=== PATIENT | male | born 1980 | race Caucasian/White ===

== ENCOUNTER 2017-02-19 16:06 | Emergency (ER) | payer SELFPAY ==
[~2017-02-19] VITALS: Ht 167.6 cm; Wt 62.0 kg
[~2017-02-19 16:06] MED LIST: ALBU6.7H INH; AMOX875 PO; BENZ100 PO; DICL75 PO; DICY1TAB26 PO; IBUP800T23 PO; MMW SWISH-SPIT; PENVK500 PO; ZOFR4TAB3 PO
[2017-02-19 16:09] VITALS: BP 115/62; PULSE 60; RESP 13; TEMP 98.5; O2SAT 99
--- NOTE | 2017-02-19 16:13 | PD ---
Physical Exam Date Seen by Provider: Feb 19, 2017 Time Seen by Provider: 16:12 Narrative 36-year-old male presents emergency Department with complaints of left ear pain. Symptoms are present now for the past 3 days. Pain is a 5/10 but getting worse. Patient is at some cold symptoms. Symptoms are moderate. No alleviating factors. Data Data Last Documented VS Vital Signs Date Time Temp Pulse Resp B/P (MAP) Pulse Ox O2 Delivery O2 Flow Rate FiO2 02/19/17 16:09 98.5 60 13 115/62 (79) 99 MDM Medical Record Reviewed: No Supervised Visit with KADY: Nguyễn Hammond Feb 19, 2017 16:13
[2017-02-19] MEDS ORDERED: AZIT500T2 PO (16:32)
--- NOTE | 2017-02-19 16:32 | PD ---
HPI Chief Complaint: Cold / Flu Symptoms Time Seen by Provider: 16:29 Travel History International Travel<30 days: No Contact w/Intl Traveler<30days: No Traveled to known affect area: No History of Present Illness HPI 36-year-old male presents to the emergency department requesting antibiotics for symptoms to include nasal congestion, sore throat, ear pressure, sinus pressure, cough 3 days. Denies fever, vomiting, abdominal pain. Chest pain, shortness of breath. Reports left ear pain is worse with blowing his nose and he hears it "pop." Denies lump in throat, difficulty swallowing, unusual drooling. Has been taking Tylenol for symptom management. No known relieving or aggravating factors. Symptoms are mild in severity. No one else with similar symptoms. Allergies to tramadol. Has no other medical complaints. No other modifying factors or associated signs and symptoms. PFSH Past Medical History Diminished Hearing: No Past Surgical History Abdominal Surgery: Yes (INGUINAL HERNIA SX) Social History Alcohol Use: No Tobacco Use: Yes Substance Use: No Allergies-Medications (Allergen,Severity, Reaction): Coded Allergies: tramadol (Unverified Allergy, Severe, Hives, 02/19/17) Reported Meds & Prescriptions Reported Meds & Active Scripts Active Azithromycin 500 Mg Tab 500 Mg PO DAILY Amoxicillin 875 Mg Tab 875 Mg PO BID 10 Days Bentyl (Dicyclomine HCl) 20 Mg Tab 20 Mg PO Q6HR PRN FOR CRAMPS Zofran ODT (Ondansetron HCl) 4 Mg Tab 4 Mg PO Q6HR PRN Diclofenac Sodium Dr (Diclofenac Sod) 75 Mg Tab 75 Mg PO BID PRN Proventil Hfa (Albuterol Sulfate) 6.7 Gm Aero 2 Puff INH Q4H PRN * SHAKE WELL BEFORE USE * Diclofenac Sodium Dr (Diclofenac Sod) 75 Mg Tab 75 Mg PO BID PRN 10 Days Penicillin V Potassium 500 Mg Tab 500 Mg PO BID 10 Days Magic Mouthwash-Diphenhy Formula (Lidocaine/Diphenhydr/Alum/Mg/Simeth) Ml 5 Ml SWISH-SPIT Q3H PRN MAGIC MOUTHWASH=MIX 1/3 VISCOUS LIDOCAINE(80 ML), 1/3 MAALOX(80 ML),AND 1/3 BENADRYL(80 ML) TO EQUAL 240 ML TOTAL VOLUME. Tessalon Perles (Benzonatate) 100 Mg Cap 100 Mg PO TID PRN Ibuprofen 800 Mg Tab 800 Mg PO Q6H PRN Review of Systems Except as stated in HPI: all other systems reviewed are Neg Physical Exam Narrative GENERAL: Well-nourished, well-developed male patient, in no acute distress; afebrile, nontoxic-appearing SKIN: Warm and dry. No rash. HEAD: Atraumatic. Normocephalic. EYES: Pupils equal and round. No scleral icterus. No injection or drainage. ENT: Mucosa pink and moist. No erythema or exudates. No uvular edema. No uvular , palatal, or tonsillar deviation. Airway patent. EARS: Bilateral pinnae and external canals appear within normal limits. Bilateral tympanic membranes without erythema, dullness or perforation. NECK: Trachea midline. No lymphadenopathy. CARDIOVASCULAR: Regular rate and rhythm. No murmur appreciated. RESPIRATORY: No accessory muscle use. Clear to auscultation. Breath sounds equal bilaterally. No retractions or tachypnea. GASTROINTESTINAL: Abdomen soft, non-tender, nondistended. Hepatic and splenic margins not palpable. Bowel sounds are active 4 quadrants. MUSCULOSKELETAL: No obvious deformities. No clubbing. No cyanosis. No edema. NEUROLOGICAL: Awake and alert. Oriented 3. No obvious cranial nerve deficits. Motor grossly within normal limits. Normal speech. Moves all extremities. 5/5 strength to all extremities. PSYCHIATRIC: Appropriate mood and affect; insight and judgment normal. Data Data Last Documented VS Vital Signs Date Time Temp Pulse Resp B/P (MAP) Pulse Ox O2 Delivery O2 Flow Rate FiO2 02/19/17 16:09 98.5 60 13 115/62 (79) 99 Orders Orders Ed Discharge Order (02/19/17 16:32) [facility] Medical Decision Making Medical Screen Exam Complete: Yes Emergency Medical Condition: Yes Medical Record Reviewed: Yes Differential Diagnosis Upper respiratory infection, influenza, pharyngitis, pneumonia, bronchitis or sinusitis Narrative Course 36-year-old male with cough/cold/flu symptoms 3 days. Patient is afebrile and nontoxic appearing. Denies fever, vomiting. I recommended influenza and rapid strep and the patient says he doesn't want any tests done he just wants antibiotics. I discussed suspected viral illness and antibiotics and the patient says he just wants antibiotics. Per patient request and will prescribe azithromycin for home. Azithromycin prescribed for home. Instructed patient to follow up with primary care provider. Patient verbalizes understanding and agreement with treatment plan. Patient is medically cleared and stable for discharge. Discussed reasons to return to the emergency department. Patient agrees with treatment plan. The patients vital signs are stable and the patient is stable for outpatient follow-up and treatment. Patient discharged home, stable and in no acute distress. Diagnosis Primary Impression: Upper respiratory infection Qualified Codes: J06.9 - Acute upper respiratory infection, unspecified Referrals: [facility] Primary Care Physician Patient Instructions: General Instructions, Upper Respiratory Infection (ED) Departure Forms: Tests/Procedures, Work Release Enter return to work date: Feb 20, 2017 Additional Instructions: Ibuprofen or Tylenol as directed and as needed to reduce fever; may alternate ibuprofen and Tylenol as needed every 3 hours to minimize fever Emop-cot-[id number] cold/flu medications as directed and as needed for symptom management Get plenty of sleep/rest Drink plenty of fluids to prevent dehydration; such as Gatorade, Powerade, Pedialyte [place] diet to encourage nutrition such as crackers, fruit, applesauce, toast, soup etc. Use an air humidifier/turn off ceiling fans Follow-up with your primary care provider within 1 day Return immediately to the emergency department with worsening of symptoms Med/Other Pt SpecificInfo: Prescription(s) given Scripts Azithromycin (Azithromycin) 500 Mg Tab 500 MG PO DAILY for Infection, #5 TAB 0 Refills Prov: Cristina Heller 02/19/17 Disposition: 01 DISCHARGE HOME Condition: Stable Cristina Heller Feb 19, 2017 16:32
== END 2017-02-19 17:09 | disposition home or self-care (01) ==
LOC: NEPK 16:06
DX: J06.9 Acute upper respiratory infection, unspecified (principal); R07.9 Chest pain, unspecified; R06.02 Shortness of breath; Z72.0 Tobacco use; Z88.5 Allergy status to narcotic agent; Z79.899 Other long term (current) drug therapy
CPT/HCPCS: 99283